=== PATIENT | male | born 1975 | race Two or more races ===

== ENCOUNTER → 2017-04-30 | Outpatient (CLI) | payer OTHER | END | disposition home or self-care (01) | LOC: Rad HDHVI 08:18 | PROVIDERS: ATTEND Internal Medicine Cardiovascular Disease | DX: I08.0 Rheumatic disorders of both mitral and aortic valves (principal) | CPT/HCPCS: 93306 ==

== ENCOUNTER 2018-02-04 07:00 | Inpatient (IN) | payer OTHER ==
[~2018-02-04] VITALS: Ht 180.3 cm; Wt 109.6 kg
[2018-02-04] MEDS ORDERED: LIDOCAINE 2%HCL (LOCAL ANESTH.) INJ 20ML MDV ONE (07:29)
[2018-02-04] MEDS ORDERED: VANCOMYCIN 1GM/250ML 250 ML IV ONE (08:03)
[2018-02-04] MEDS ORDERED: VANCOMYCIN HCL 1000 MG VL ONE (08:03)
[2018-02-04] MEDS ORDERED: ceFAZolin 1GM VL ONE (08:03)
[2018-02-04] MEDS ORDERED: ceFAZolin 1GM/100ML 100 ML IV ONE (08:08)
[2018-02-04] MEDS ORDERED: fentaNYL CITRATE 100 MCG/2 ML VL ONE (10:38)
[2018-02-04] MEDS ORDERED: MIDAZOLAM HCL 1MG/1ML-2 ML VIAL ONE (10:38)
[2018-02-04] MEDS ORDERED: methylPREDNISolone SOD SUCC 125 MG/2 ML VL ONE (11:39)
[2018-02-04] MEDS ORDERED: diphenhdrAMINE HCL 50 MG/1 ML VL ONE (11:39)
[2018-02-04] MEDS ORDERED: LISI-646 PO (12:42)
[2018-02-04] MEDS ORDERED: ASPI81TA27 PO (12:42)
[2018-02-04] MEDS ORDERED: ATOR40TA52 PO (12:42)
[2018-02-04] MEDS ORDERED: MORPHINE SULFATE 4 MG/ML SYR/VIAL IV PRN (12:45)
[2018-02-04] MEDS ORDERED: NITROGLYCERIN 0.4 MG SL TAB SL PRN (12:45)
[2018-02-04] MEDS ORDERED: ACETAMINOPHEN 325 MG TAB PO PRN (12:45)
[2018-02-04] MEDS: HYDROcodone-ACET 5/325MG TAB PO PRN ×2 (15:36→21:22)
[2018-02-04 17:37] VITALS: BP 121/65
[2018-02-04] MEDS: VANCOMYCIN 1GM/250ML 250 ML IV SCH (21:31)
[2018-02-04 21:46] VITALS: BP 122/63
[2018-02-04] MEDS ORDERED: ATORVASTATIN 20 MG TAB PO SCH (22:00)
[2018-02-05 04:51] VITALS: BP 116/59
[2018-02-05 08:45] VITALS: BP 127/67
[2018-02-05] MEDS: VANCOMYCIN 1GM/250ML 250 ML IV SCH (09:41)
[2018-02-05] MEDS: HYDROcodone-ACET 5/325MG TAB PO PRN (09:42)
[2018-02-05] MEDS ORDERED: LISINOPRIL 20 MG TAB PO SCH (10:00)
[2018-02-05 11:55] VITALS: BP 125/61
[2018-02-05 15:09] VITALS: BP 125/61
[2018-02-05] MEDS ORDERED: MORPHINE SULFATE 8mg/ml INJ SDV IV PRN (17:00)
== END 2018-02-05 17:11 | DRG 244 ==
LOC: CATH 07:00 → TELE-E-ADS 07:01 → EEVIPCON 07:01
PROVIDERS: ADMIT Internal Medicine Cardiovascular Disease; ATTEND Internal Medicine Cardiovascular Disease
PROC: 02H63JZ Insertion of Pacemaker Lead into Right Atrium, Percutaneous Approach (ICD-10-PCS; principal; 2018-02-04)
PROC: 0JH606Z Insertion of Pacemaker, Dual Chamber into Chest Subcutaneous Tissue and Fascia, Open Approach (ICD-10-PCS; 2018-02-04)
PROC: 02HK3JZ Insertion of Pacemaker Lead into Right Ventricle, Percutaneous Approach (ICD-10-PCS; 2018-02-04)
DX: I49.5 Sick sinus syndrome (principal)
CPT/HCPCS: 33208; 71045; 93005; 99152; 99153; C1785; J0690; J2250